=== PATIENT | male | born 1950 | race Caucasian/White ===

== ENCOUNTER 2021-12-11 13:22 | Inpatient (IN) ==
[2021-12-11] MEDS ORDERED: 0.9 % Sodium Chloride 1,000 ML IVC ONE (14:20)
[2021-12-11 14:25] LABS: Red Cell Distribution Width 13.2 % (11.5-14.5)
[2021-12-11 14:27] LABS: Basophils % 0.3 %; Immature Platelets 5.9 % (1.1-6.1)
[2021-12-11 14:31] LABS: Eosinophils # 0.1 K/mcL (0.0-0.6); Eosinophils % 1.2 %; Hemoglobin 11.1 g/dL (12.9-16.9); Immature Granulocytes % 0.3 % (0-4); Lymphocytes # 1.6 K/mcL (0.6-4.6); Lymphocytes % 26.7 %; Mean Corpuscular HGB Conc 32.6 g/dL (31.6-35.5); Mean Corpuscular Hemoglobin 32.1 pg (28.0-33.3); Mean Corpuscular Volume 98.3 fL (83.0-100.0); Monocytes # 0.5 K/mcL (0.0-1.3); Monocytes % 8.4 %; Neutrophils # 3.8 K/mcL (1.6-8.9); Platelet Count 101 K/mcL (140-400); Red Blood Count 3.46 M/mcL (4.19-5.50); Segmented Neutrophils % 63.1 %
[2021-12-11 14:42] LABS: Alanine Aminotransferase 15 Units/L (7-52); Albumin 3.9 g/dL (3.5-5.7); Albumin/Globulin Ratio 1.4 (1.1-2.2); Alkaline Phosphatase 45 Units/L (34-104); Aspartate Amino Transferase 18 Units/L (13-39); BUN/Creatinine Ratio 25 (6-26); Bilirubin,Direct 0.1 mg/dL (0.0-0.2); Bilirubin,Indirect 0.2 mg/dL (0.0-1.0); Bilirubin,Total 0.3 mg/dL (0.3-1.0); Blood Urea Nitrogen 99 mg/dL (8-23); Calcium 7.9 mg/dL (8.6-10.3); Carbon Dioxide 16 mEq/L (23-29); Chloride 110 mEq/L (98-107); Globulin 2.8 g/dL (2.4-3.5); Glucose 147 mg/dL (70-105); Lipase 55 Units/L (11-82); Magnesium 1.5 mg/dL (1.6-2.6); Osmolality,Calculated 316 (280-300); Potassium 4.8 mEq/L (3.5-5.1); Sodium 136 mEq/L (136-145); Total Protein 6.7 g/dL (6.4-8.9); Troponin I < 0.03 ng/mL (< 0.04)
[2021-12-11 15:05] LABS: Amorphous Sediment,Urine Few per hpf (None-Few); Bacteria,Urine Few per hpf (None-Few); Bilirubin,Urine Negative (Negative); Blood,Urine Trace (Negative); Clarity,Urine Clear (Clear); Color,Urine Light-Yellow (Yellow); Glucose,Urine (UA) 500 mg/dL (Normal); Ketones,Urine Negative (Negative); Leukocyte Esterase,Urine Negative (Negative); Mucus,Urine Few per lpf (None-Few); Nitrite,Urine Negative (Negative); Protein,Urine >=300 mg/dL (Neg-Trace); RBC,Urine 0-3 per hpf (0-3); Specific Gravity,Urine 1.016 (1.010-1.025); Squamous Epithelial Cell,Urine Few per hpf (None-Few); Urobilinogen,Urine Normal (Normal)
[2021-12-11] MEDS ORDERED: 0.9 % Sodium Chloride 1,000 ML IV ONE (15:07)
[2021-12-11] MEDS ORDERED: Naloxone 0.4 MG/ML INJ IVP PRN (16:40)
[2021-12-11] MEDS ORDERED: *HR* Dextrose 50 % in Water (Syg) 50 ML SYRINGE IVP PRN (17:36)
[2021-12-11] MEDS ORDERED: D5% in Water 1,000 ML IVC PRN (17:36)
[2021-12-11] MEDS ORDERED: Dextrose Gel 15 GM/37.5 ML TUBE PO PRN ×2 (17:36)
[2021-12-11] MEDS: 0.9 % Sodium Chloride 1,000 ML IVC SCH (20:11)
[2021-12-11] MEDS: Insulin LISPRO 300 UNITS/3 ML VIAL SUBQ SCH (21:24)
[2021-12-11 23:05] LABS: Adenovirus Not Detected (Not Detect); Coronavirus 229E Not Detected (Not Detect); Coronavirus HKU1 Not Detected (Not Detect); Coronavirus NL63 Not Detected (Not Detect); Coronavirus OC43 Not Detected (Not Detect)
[2021-12-11 23:07] LABS: Bordetella Pertussis Not Detected (Not Detect); Chlamydophila pneumoniae Not Detected (Not Detect); Human Metapneumovirus Not Detected (Not Detect); Human Rhinovirus/Enterovirus Not Detected (Not Detect); Influenza A Subtype 2009 H1 Not Detected (Not Detect); Influenza B Not Detected (Not Detect); Mycoplasma pneumoniae Not Detected (Not Detect); Parainfluenza Virus 1 Not Detected (Not Detect); Parainfluenza Virus 2 Not Detected (Not Detect); Parainfluenza Virus 3 Not Detected (Not Detect); Parainfluenza Virus 4 Not Detected (Not Detect); Respiratory Syncytial Virus Not Detected (Not Detect); SARS-CoV-2 DETECTED (Not Detect)
[2021-12-12] MEDS: *HR* Enoxaparin 30 MG/0.3 ML SYRINGE SQ SCH (05:48)
[2021-12-12 05:58] LABS: Basophils % 0.3 %; Hemoglobin 10.2 g/dL (12.9-16.9); Immature Granulocytes % 0.3 % (0-4)
[2021-12-12 06:00] LABS: Eosinophils # 0.1 K/mcL (0.0-0.6); Eosinophils % 2.3 %; Hematocrit 30.6 % (37.5-50.1); Immature Platelets 4.5 % (1.1-6.1); Lymphocytes # 1.6 K/mcL (0.6-4.6); Lymphocytes % 39.9 %; Mean Corpuscular HGB Conc 33.3 g/dL (31.6-35.5); Mean Corpuscular Hemoglobin 32.9 pg (28.0-33.3); Mean Corpuscular Volume 98.7 fL (83.0-100.0); Mean Platelet Volume 11.5 fL (9.4-12.4); Monocytes # 0.4 K/mcL (0.0-1.3); Monocytes % 10.4 %; Neutrophils # 1.8 K/mcL (1.6-8.9); Red Cell Distribution Width 13.2 % (11.5-14.5); Segmented Neutrophils % 46.8 %; White Blood Count 3.9 K/mcL (4.3-11.1)
[2021-12-12] MEDS ORDERED: *HR* Enoxaparin 40 MG/0.4 ML SYRINGE SQ SCH (06:00)
[2021-12-12 06:16] LABS: Platelet Count 83 K/mcL (140-400); Platelet Estimate Slight Decrease (Normal)
[2021-12-12 06:17] LABS: Albumin 3.5 g/dL (3.5-5.7); Calcium 7.5 mg/dL (8.6-10.3); Magnesium 1.9 mg/dL (1.6-2.6); Phosphorous 4.8 mg/dL (2.7-4.5); Potassium 4.6 mEq/L (3.5-5.1)
[2021-12-12] MEDS: Insulin LISPRO 300 UNITS/3 ML VIAL SUBQ SCH ×4 (08:17→20:35)
[2021-12-12] MEDS: Finasteride 5 MG TABLET PO SCH (08:25)
[2021-12-12] MEDS: Loratadine 10 MG TABLET PO SCH (08:26)
[2021-12-12] MEDS: allopurinoL 100 MG TABLET PO SCH (08:26)
[2021-12-12] MEDS: carvediloL 25 MG TABLET PO SCH ×2 (08:26→20:32)
[2021-12-12] MEDS: Tiotropium 10 INH DOSE IH SCH (10:03)
[2021-12-12] MEDS: 0.9 % Sodium Chloride 1,000 ML IVC SCH (15:40)
[2021-12-13 04:01] LABS: Basophils % 0.3 %; Hematocrit 31.7 % (37.5-50.1); Hemoglobin 10.3 g/dL (12.9-16.9); Immature Granulocytes % 0.3 % (0-4); Mean Corpuscular HGB Conc 32.5 g/dL (31.6-35.5); Monocytes % 11.2 %
[2021-12-13 04:04] LABS: Eosinophils # 0.1 K/mcL (0.0-0.6); Eosinophils % 2.5 %; Lymphocytes # 1.7 K/mcL (0.6-4.6); Lymphocytes % 46.3 %; Mean Corpuscular Volume 98.4 fL (83.0-100.0); Mean Platelet Volume 11.3 fL (9.4-12.4); Monocytes # 0.4 K/mcL (0.0-1.3); Neutrophils # 1.5 K/mcL (1.6-8.9); Red Blood Count 3.22 M/mcL (4.19-5.50); Red Cell Distribution Width 13.1 % (11.5-14.5); Segmented Neutrophils % 39.4 %; White Blood Count 3.7 K/mcL (4.3-11.1)
[2021-12-13 04:10] LABS: Platelet Count 85 K/mcL (140-400)
[2021-12-13 04:25] LABS: Albumin 3.5 g/dL (3.5-5.7); Albumin/Globulin Ratio 1.5 (1.1-2.2); Bilirubin,Total 0.3 mg/dL (0.3-1.0); Calcium 7.5 mg/dL (8.6-10.3); Globulin 2.4 g/dL (2.4-3.5); Potassium 4.6 mEq/L (3.5-5.1); Total Protein 5.9 g/dL (6.4-8.9)
[2021-12-13] MEDS: *HR* Enoxaparin 30 MG/0.3 ML SYRINGE SQ SCH (06:09)
[2021-12-13] MEDS: carvediloL 25 MG TABLET PO SCH ×2 (07:53→19:46)
[2021-12-13] MEDS: allopurinoL 100 MG TABLET PO SCH (07:53)
[2021-12-13] MEDS: Finasteride 5 MG TABLET PO SCH (07:53)
[2021-12-13] MEDS: Loratadine 10 MG TABLET PO SCH (07:54)
[2021-12-13] MEDS: Insulin LISPRO 300 UNITS/3 ML VIAL SUBQ SCH ×4 (07:54→19:46)
[2021-12-13] MEDS: Tiotropium 10 INH DOSE IH SCH (07:58)
[2021-12-13] MEDS: Sodium Bicarbonate 150 MEQ in D5% in Water 1,000 ML IVC SCH ×2 (11:16→21:38)
[2021-12-13] MEDS: NIFEdipine XL (24 HR) 30 MG TAB.ER.24 PO SCH (13:08)
[2021-12-13] MEDS: cloNIDine HCL 0.1 MG TABLET PO SCH (19:46)
[2021-12-14] MEDS: *HR* Enoxaparin 30 MG/0.3 ML SYRINGE SQ SCH (06:29)
[2021-12-14] MEDS: Tiotropium 10 INH DOSE IH SCH (07:49)
[2021-12-14] MEDS: NIFEdipine XL (24 HR) 30 MG TAB.ER.24 PO SCH (08:42)
[2021-12-14] MEDS: cloNIDine HCL 0.1 MG TABLET PO SCH ×2 (08:42→20:35)
[2021-12-14] MEDS: Loratadine 10 MG TABLET PO SCH (08:42)
[2021-12-14] MEDS: allopurinoL 100 MG TABLET PO SCH (08:42)
[2021-12-14] MEDS: Finasteride 5 MG TABLET PO SCH (08:42)
[2021-12-14] MEDS: Insulin LISPRO 300 UNITS/3 ML VIAL SUBQ SCH ×4 (08:43→20:52)
[2021-12-14] MEDS: carvediloL 25 MG TABLET PO SCH ×2 (08:43→20:35)
[2021-12-14] MEDS: QUEtiapine Fumarate 25 MG TABLET PO SCH (20:34)
[2021-12-15 05:28] LABS: Calcium 7.7 mg/dL (8.6-10.3); Potassium 4.1 mEq/L (3.5-5.1)
[2021-12-15] MEDS: *HR* Enoxaparin 30 MG/0.3 ML SYRINGE SQ SCH ×2 (06:04→06:15)
[2021-12-15] MEDS: Tiotropium 10 INH DOSE IH SCH (07:35)
[2021-12-15] MEDS: cloNIDine HCL 0.1 MG TABLET PO SCH ×2 (09:08→20:47)
[2021-12-15] MEDS: Finasteride 5 MG TABLET PO SCH (09:08)
[2021-12-15] MEDS: allopurinoL 100 MG TABLET PO SCH (09:08)
[2021-12-15] MEDS: carvediloL 25 MG TABLET PO SCH ×2 (09:09→20:47)
[2021-12-15] MEDS: NIFEdipine XL (24 HR) 30 MG TAB.ER.24 PO SCH (09:09)
[2021-12-15] MEDS: Loratadine 10 MG TABLET PO SCH (09:09)
[2021-12-15] MEDS: Insulin LISPRO 300 UNITS/3 ML VIAL SUBQ SCH ×4 (09:17→20:40)
[2021-12-15] MEDS: QUEtiapine Fumarate 25 MG TABLET PO SCH (20:48)
[2021-12-16] MEDS: *HR* Enoxaparin 30 MG/0.3 ML SYRINGE SQ SCH (06:30)
[2021-12-16] MEDS: Insulin LISPRO 300 UNITS/3 ML VIAL SUBQ SCH ×4 (07:22→20:58)
[2021-12-16] MEDS: Tiotropium 10 INH DOSE IH SCH (07:43)
[2021-12-16] MEDS: Loratadine 10 MG TABLET PO SCH (09:19)
[2021-12-16] MEDS: carvediloL 25 MG TABLET PO SCH ×2 (09:19→21:34)
[2021-12-16] MEDS: cloNIDine HCL 0.1 MG TABLET PO SCH ×2 (09:19→21:36)
[2021-12-16] MEDS: allopurinoL 100 MG TABLET PO SCH (09:20)
[2021-12-16] MEDS: Finasteride 5 MG TABLET PO SCH (09:20)
[2021-12-16] MEDS: NIFEdipine XL (24 HR) 30 MG TAB.ER.24 PO SCH (09:20)
[2021-12-16] MEDS ORDERED: Acetaminophen 325 MG TABLET PO ONE (10:25)
[2021-12-16 11:19] LABS: Calcium 7.6 mg/dL (8.6-10.3); Potassium 4.1 mEq/L (3.5-5.1)
[2021-12-16] MEDS: QUEtiapine Fumarate 25 MG TABLET PO SCH (21:36)
[2021-12-16] MEDS ORDERED: Acetaminophen/Aspirin/Caffeine TABLET PO ONE (22:06)
[2021-12-17] MEDS: *HR* Enoxaparin 30 MG/0.3 ML SYRINGE SQ SCH (05:29)
[2021-12-17] MEDS: Tiotropium 10 INH DOSE IH SCH (07:43)
[2021-12-17] MEDS: cloNIDine HCL 0.1 MG TABLET PO SCH ×2 (10:05→21:50)
[2021-12-17] MEDS: Finasteride 5 MG TABLET PO SCH (10:05)
[2021-12-17] MEDS: Loratadine 10 MG TABLET PO SCH (10:05)
[2021-12-17] MEDS: carvediloL 25 MG TABLET PO SCH ×2 (10:05→21:50)
[2021-12-17] MEDS: allopurinoL 100 MG TABLET PO SCH (10:05)
[2021-12-17] MEDS: NIFEdipine XL (24 HR) 30 MG TAB.ER.24 PO SCH (10:05)
[2021-12-17] MEDS: Insulin LISPRO 300 UNITS/3 ML VIAL SUBQ SCH ×3 (12:18→21:00)
[2021-12-17] MEDS: Acetaminophen 325 MG TABLET PO PRN (21:49)
[2021-12-17] MEDS: QUEtiapine Fumarate 25 MG TABLET PO SCH (21:50)
[2021-12-18] MEDS: *HR* Enoxaparin 30 MG/0.3 ML SYRINGE SQ SCH (05:31)
[2021-12-18] MEDS: Insulin LISPRO 300 UNITS/3 ML VIAL SUBQ SCH ×4 (07:35→21:17)
[2021-12-18] MEDS: Tiotropium 10 INH DOSE IH SCH (07:58)
[2021-12-18] MEDS: Loratadine 10 MG TABLET PO SCH (08:24)
[2021-12-18] MEDS: carvediloL 25 MG TABLET PO SCH ×2 (08:24→21:09)
[2021-12-18] MEDS: allopurinoL 100 MG TABLET PO SCH (08:25)
[2021-12-18] MEDS: NIFEdipine XL (24 HR) 30 MG TAB.ER.24 PO SCH (08:25)
[2021-12-18] MEDS: cloNIDine HCL 0.1 MG TABLET PO SCH ×2 (08:25→21:09)
[2021-12-18] MEDS: Finasteride 5 MG TABLET PO SCH (08:25)
[2021-12-18] MEDS: Acetaminophen 325 MG TABLET PO PRN (17:25)
[2021-12-18] MEDS: QUEtiapine Fumarate 25 MG TABLET PO SCH (21:09)
[2021-12-19] MEDS: *HR* Enoxaparin 30 MG/0.3 ML SYRINGE SQ SCH (05:01)
[2021-12-19] MEDS: Tiotropium 10 INH DOSE IH SCH (07:51)
[2021-12-19] MEDS: Insulin LISPRO 300 UNITS/3 ML VIAL SUBQ SCH ×4 (08:45→21:55)
[2021-12-19] MEDS: allopurinoL 100 MG TABLET PO SCH (09:36)
[2021-12-19] MEDS: carvediloL 25 MG TABLET PO SCH ×2 (09:36→20:14)
[2021-12-19] MEDS: Finasteride 5 MG TABLET PO SCH (09:36)
[2021-12-19] MEDS: Loratadine 10 MG TABLET PO SCH (09:36)
[2021-12-19] MEDS: NIFEdipine XL (24 HR) 30 MG TAB.ER.24 PO SCH (09:36)
[2021-12-19] MEDS: cloNIDine HCL 0.1 MG TABLET PO SCH ×2 (09:36→20:14)
[2021-12-19] MEDS: Acetaminophen 325 MG TABLET PO PRN (13:17)
[2021-12-19] MEDS ORDERED: Acetaminophen/Aspirin/Caffeine TABLET PO ONE (17:56)
[2021-12-19] MEDS: QUEtiapine Fumarate 25 MG TABLET PO SCH (20:14)
[2021-12-20] MEDS: *HR* Enoxaparin 30 MG/0.3 ML SYRINGE SQ SCH (05:12)
[2021-12-20] MEDS: Tiotropium 10 INH DOSE IH SCH (07:48)
[2021-12-20] MEDS: Finasteride 5 MG TABLET PO SCH (07:51)
[2021-12-20] MEDS: NIFEdipine XL (24 HR) 30 MG TAB.ER.24 PO SCH (07:51)
[2021-12-20] MEDS: carvediloL 25 MG TABLET PO SCH ×2 (07:51→21:00)
[2021-12-20] MEDS: cloNIDine HCL 0.1 MG TABLET PO SCH ×2 (07:52→21:00)
[2021-12-20] MEDS: allopurinoL 100 MG TABLET PO SCH (07:52)
[2021-12-20] MEDS: Loratadine 10 MG TABLET PO SCH (07:52)
[2021-12-20] MEDS: Insulin LISPRO 300 UNITS/3 ML VIAL SUBQ SCH ×3 (11:25→20:50)
[2021-12-20] MEDS: Acetaminophen 325 MG TABLET PO PRN ×2 (15:11→21:28)
[2021-12-20] MEDS: QUEtiapine Fumarate 25 MG TABLET PO SCH (21:00)
[2021-12-21 02:48] VITALS: TEMP 97.1
[2021-12-21] MEDS: *HR* Enoxaparin 30 MG/0.3 ML SYRINGE SQ SCH (05:37)
[2021-12-21] MEDS: Tiotropium 10 INH DOSE IH SCH (07:41)
[2021-12-21] MEDS: carvediloL 25 MG TABLET PO SCH (08:53)
[2021-12-21] MEDS: Finasteride 5 MG TABLET PO SCH (08:54)
[2021-12-21] MEDS: NIFEdipine XL (24 HR) 30 MG TAB.ER.24 PO SCH (08:54)
[2021-12-21] MEDS: allopurinoL 100 MG TABLET PO SCH (08:54)
[2021-12-21] MEDS: cloNIDine HCL 0.1 MG TABLET PO SCH (08:55)
[2021-12-21] MEDS: Loratadine 10 MG TABLET PO SCH (08:55)
[2021-12-21] MEDS: Insulin LISPRO 300 UNITS/3 ML VIAL SUBQ SCH ×2 (08:58→13:51)
[2021-12-21 10:52] VITALS: BP 110/66; PULSE 88; O2SAT 94
== END 2021-12-21 15:20 | DRG 178 ==
LOC: EMEROOARM 13:22 → 3NENU 13:22 → SUATTDRO 12-13 17:25 → 3NENU 12-14 07:33
PROVIDERS: ADMIT Internal Medicine; ATTEND Internal Medicine